=== PATIENT | female | born 1950 | race Caucasian/White ===

== ENCOUNTER 2020-08-02 21:46 | Outpatient (REF) | payer OTHER, SELFPAY ==
[2020-08-02 22:04] LABS: HCT 34.5 % (36.0-46.0); HGB 10.6 g/dL (11.2-15.7); MCHC 30.7 % (32.0-36.0); MCV 87.8 fL (80-95); MPV 10.5 fL (8.0-11.0); Platelet Count 447 10^3/uL (130-400); RBC 3.93 10^6/uL (3.93-5.22); RDW 14.6 % (11.7-14.6); RDW-SD 47.2 fL; WBC 7.19 10^3/uL (4.4-10.8)
[2020-08-02 22:53] LABS: TSH (W/Ref FT4) 0.92 uIU/mL (0.36-3.74)
[2020-08-02 22:57] LABS: Vitamin B12 > 2000 pg/mL (193-986)
== END 2020-08-02 21:47 | disposition home or self-care (01) ==
LOC: NCHCN 21:46
PROVIDERS: Visit Provider Nurse Practitioner Family
DX: K50.90 Crohn's disease, unspecified, without complications (principal); R00.2 Palpitations
CPT/HCPCS: 85027; 82607; 84443

== ENCOUNTER 2020-09-04 20:29 | Outpatient (REF) | payer OTHER, SELFPAY ==
[2020-09-04 21:44] LABS: HCT 32.1 % (36.0-46.0); HGB 10.2 g/dL (11.2-15.7); MCH 26.8 pg (27.0-33.0); MCHC 31.8 % (32.0-36.0); MCV 84.3 fL (80-95); MPV 10.1 fL (8.0-11.0); Platelet Count 581 10^3/uL (130-400); RBC 3.81 10^6/uL (3.93-5.22); RDW 16.6 % (11.7-14.6); WBC 11.43 10^3/uL (4.4-10.8)
[2020-09-04 21:54] LABS: Anion Gap 14.7 mmol/L (3-11); BUN 29 mg/dL (7-18); CO2 19.3 mmol/L (21.0-32.0); CREATININE 0.9 mg/dL (0.55-1.02); Calcium 8.7 mg/dL (8.5-10.1); Chloride 109 mmol/L (98-107); Glucose 121 mg/dL (74-106); Potassium 3.2 mmol/L (3.5-5.1); Sodium 143 mmol/L (136-145)
== END 2020-09-04 20:30 | disposition home or self-care (01) ==
LOC: NCHCN 20:29
PROVIDERS: Visit Provider Nurse Practitioner Family
DX: K50.00 Crohn's disease of small intestine without complications (principal); R19.7 Diarrhea, unspecified; K52.9 Noninfective gastroenteritis and colitis, unspecified
CPT/HCPCS: 80048; 85027

== ENCOUNTER 2020-09-20 12:12 | Outpatient (REF) | payer OTHER, SELFPAY ==
[2020-09-20 21:08] LABS: Hemoglobin A1C 5.7 % (<5.7)
[2020-09-20 21:14] LABS: Anion Gap 8.9 mmol/L (3-11); BUN 25 mg/dL (7-18); CO2 18.1 mmol/L (21.0-32.0); Calcium 8.7 mg/dL (8.5-10.1); Calculated LDL 64 mg/dL (<100); Chloride 113 mmol/L (98-107); Cholesterol 204 mg/dL (<200); Estimated GFR 54.97 (mL/min/1.73m2); Glucose 153 mg/dL (74-106); HDL Cholesterol 117 mg/dL (40-60); Sodium 140 mmol/L (136-145); Triglyceride 115 mg/dL (<150)
== END 2020-09-20 12:13 | disposition home or self-care (01) ==
LOC: NCHCN 12:12
PROVIDERS: Visit Provider Nurse Practitioner Family
DX: R73.9 Hyperglycemia, unspecified (principal); K50.00 Crohn's disease of small intestine without complications; Z13.220 Encounter for screening for lipoid disorders
CPT/HCPCS: 80048; 80061; 83036

== ENCOUNTER 2020-09-26 10:37 | Outpatient (REF) | payer OTHER, SELFPAY ==
[2020-09-26 14:01] LABS: Potassium 3.7 mmol/L (3.5-5.1)
== END 2020-09-26 10:38 | disposition home or self-care (01) ==
LOC: NCHCN 10:37
PROVIDERS: Visit Provider Nurse Practitioner Family
DX: K50.00 Crohn's disease of small intestine without complications (principal); E87.6 Hypokalemia
CPT/HCPCS: 84132

== ENCOUNTER 2020-10-20 18:44 | Outpatient (REF) | payer MEDICARE, OTHER, SELFPAY ==
[2020-10-18 21:48] LABS: BUN 16 mg/dL (7-18); Calcium 8.8 mg/dL (8.5-10.1); Chloride 109 mmol/L (98-107); Estimated GFR 54.97 (mL/min/1.73m2); Glucose 99 mg/dL (74-106); Potassium 3.6 mmol/L (3.5-5.1); Sodium 143 mmol/L (136-145)
== END 2020-10-20 18:45 | disposition home or self-care (01) ==
LOC: NCHCN 18:44
PROVIDERS: Visit Provider Nurse Practitioner Family
DX: E87.6 Hypokalemia (principal); R19.7 Diarrhea, unspecified
CPT/HCPCS: 80048

== ENCOUNTER 2021-02-20 19:00 | Outpatient (REF) | payer MEDICARE, SELFPAY ==
[2021-02-20 15:13] LABS: Abs Immature Grans 0.01 10^3/uL (0.0-0.06); Absolute Basophil Count 0.07 10^3/uL (0.0-0.2); Absolute Eosinophil Count 0.16 10^3/uL (0.0-0.7); Absolute Lymphocyte Count 1.72 10^3/uL (1.2-3.4); Absolute Monocyte Count 0.32 10^3/uL (0.1-0.8); Absolute Neutrophil Count 2.87 10^3/uL (1.2-6.7); Basophils % 1.4; Eosinophils % 3.1; HCT 30.3 % (36.0-46.0); HGB 8.9 g/dL (11.2-15.7); Immature Grans % 0.2; Lymphocytes % 33.4; MCH 22.6 pg (27.0-33.0); MCHC 29.4 % (32.0-36.0); MCV 76.9 fL (80-95); Monocytes % 6.2; Neutrophils % 55.7; Nucleated RBC 0 %; Platelet Count 510 10^3/uL (130-400); RBC 3.94 10^6/uL (3.93-5.22); RDW 17.7 % (11.7-14.6); RDW-SD 49.2 fL; WBC 5.15 10^3/uL (4.4-10.8)
[2021-02-20 15:25] LABS: ALT 20 U/L (14-59); AST 13 U/L (15-37); Albumin 3.4 g/dL (3.4-5.0); Alkaline Phosphatase 75 U/L (46-116); Bilirubin, Direct 0.1 mg/dL (0.0-0.2); Bilirubin, Total 0.2 mg/dL (0.2-1.0); Total Protein 6.3 g/dL (6.4-8.2)
== END 2021-02-20 19:01 | disposition home or self-care (01) ==
LOC: LBN 19:00
PROVIDERS: Visit Provider Internal Medicine Gastroenterology
DX: R19.7 Diarrhea, unspecified (principal); K50.012 Crohn's disease of small intestine with intestinal obstruction
CPT/HCPCS: 80076; 85025

== ENCOUNTER 2021-03-04 15:09 | Outpatient (REF) | payer MEDICARE, SELFPAY ==
[2021-03-04 21:22] LABS: HCT 29.7 % (36.0-46.0); HGB 8.6 g/dL (11.2-15.7); MCH 22.2 pg (27.0-33.0); MCV 76.5 fL (80-95); MPV 10.2 fL (8.0-11.0); Platelet Count 495 10^3/uL (130-400); RBC 3.88 10^6/uL (3.93-5.22); RDW 17.9 % (11.7-14.6); RDW-SD 49.4 fL; WBC 6.11 10^3/uL (4.4-10.8)
[2021-03-04 21:40] LABS: Anion Gap 10.6 mmol/L (3-11); BUN 14 mg/dL (7-18); CO2 23.4 mmol/L (21.0-32.0); CREATININE 0.8 mg/dL (0.55-1.02); Calcium 8.7 mg/dL (8.5-10.1); Chloride 107 mmol/L (98-107); Glucose 84 mg/dL (74-106); Potassium 4.2 mmol/L (3.5-5.1); Sodium 141 mmol/L (136-145)
[2021-03-05 09:44] LABS: Abs Immature Grans 0.01 10^3/uL (0.0-0.06); Absolute Basophil Count 0.04 10^3/uL (0.0-0.2); Absolute Eosinophil Count 0.17 10^3/uL (0.0-0.7); Absolute Lymphocyte Count 2.27 10^3/uL (1.2-3.4); Absolute Monocyte Count 0.38 10^3/uL (0.1-0.8); Absolute Neutrophil Count 3.36 10^3/uL (1.2-6.7); Basophils % 0.6; Eosinophils % 2.7; Immature Grans % 0.2; Lymphocytes % 36.4; Monocytes % 6.1
[2021-03-05 09:54] LABS: Iron 27 ug/dL (50-170); Total Iron Binding Capacity 446 ug/dL (250-450)
[2021-03-05 10:20] LABS: Ferritin 7 ng/mL (8-252); Vitamin B12 146 pg/mL (193-986)
== END 2021-03-04 15:10 | disposition home or self-care (01) ==
LOC: NCHCN 15:09
PROVIDERS: Visit Provider Nurse Practitioner Family
DX: D64.9 Anemia, unspecified (principal); R00.2 Palpitations
CPT/HCPCS: 80048; 85027; 82607; 82728; 83540; 83550; 84443; 85007

== ENCOUNTER 2021-08-26 15:24 | Outpatient (REF) | payer MEDICARE, SELFPAY ==
[2021-08-26 21:57] LABS: ESR 13 mm/hr (0-30)
[2021-08-26 21:59] LABS: C-Reactive Protein 0.08 mg/dL (0.0-0.3)
== END 2021-08-26 15:25 | disposition home or self-care (01) ==
LOC: LBN 15:24
PROVIDERS: Visit Provider Internal Medicine Rheumatology
DX: M79.641 Pain in right hand (principal); M79.642 Pain in left hand
CPT/HCPCS: 85652; 86140

== ENCOUNTER 2021-11-24 19:13 | Outpatient (REF) | payer MEDICARE, OTHER, SELFPAY ==
[2021-11-24 15:16] LABS: Abs Immature Grans 0.05 10^3/uL (0.0-0.06); Absolute Basophil Count 0.05 10^3/uL (0.0-0.2); Absolute Eosinophil Count 0.01 10^3/uL (0.0-0.7); Absolute Lymphocyte Count 1.86 10^3/uL (1.2-3.4); Absolute Monocyte Count 0.71 10^3/uL (0.1-0.8); Basophils % 0.4; Eosinophils % 0.1; HGB 11.5 g/dL (11.2-15.7); Immature Grans % 0.4; MCHC 32.9 % (32.0-36.0); MCV 88 fL (80-95); MPV 10.8 fL (8.0-11.0); Monocytes % 5.7; Neutrophils % 78.4; Platelet Count 306 10^3/uL (130-400); RBC 3.97 10^6/uL (3.93-5.22); RDW 13.9 % (11.7-14.6); WBC 12.38 10^3/uL (4.4-10.8)
[2021-11-24 15:34] LABS: Absolute Neutrophil Count 9.71 10^3/uL (1.2-6.7)
[2021-11-24 16:09] LABS: ALT 54 U/L (14-59); AST 28 U/L (15-37); Albumin 3.3 g/dL (3.4-5.0); Alkaline Phosphatase 109 U/L (46-116); Anion Gap 11.7 mmol/L (3-11); BUN 20 mg/dL (7-18); Bilirubin, Total 0.8 mg/dL (0.2-1.0); CO2 23.3 mmol/L (21.0-32.0); CREATININE 0.9 mg/dL (0.55-1.02); Calcium 9.6 mg/dL (8.5-10.1); Chloride 105 mmol/L (98-107); Estimated GFR 68.77 (mL/min/1.73m2); Glucose 100 mg/dL (74-106); Potassium 3.2 mmol/L (3.5-5.1); Sodium 140 mmol/L (136-145)
== END 2021-11-24 19:14 | disposition home or self-care (01) ==
LOC: NCHCN 19:13
PROVIDERS: Visit Provider Internal Medicine
DX: R10.31 Right lower quadrant pain (principal)
CPT/HCPCS: 80053; 87077; 85025; 87086; 87186

== ENCOUNTER 2022-01-07 15:32 | Outpatient (REF) | payer MEDICARE, OTHER, SELFPAY | END 2022-01-07 15:33 | disposition home or self-care (01) | LOC: NCHCN 15:32 | PROVIDERS: Visit Provider Internal Medicine | DX: R39.89 Other symptoms and signs involving the genitourinary system (principal) | CPT/HCPCS: 87077; 87086; 87186 ==

== ENCOUNTER 2022-04-27 14:43 | Outpatient (REF) | payer MEDICARE, OTHER, SELFPAY ==
[2022-04-27 15:55] LABS: HCT 36.3 % (36.0-46.0); HGB 11.7 g/dL (11.2-15.7); MCH 28.9 pg (27.0-33.0); MCHC 32.2 % (32.0-36.0); MCV 90 fL (80-95); Platelet Count 396 10^3/uL (130-400); RBC 4.05 10^6/uL (3.93-5.22); RDW 13.9 % (11.7-14.6); RDW-SD 45.1 fL; WBC 7.47 10^3/uL (4.4-10.8)
[2022-04-27 16:44] LABS: Anion Gap 9.9 mmol/L (3-11); BUN 18 mg/dL (7-18); CO2 24.1 mmol/L (21.0-32.0); CREATININE 0.8 mg/dL (0.55-1.02); Calcium 9.3 mg/dL (8.5-10.1); Chloride 107 mmol/L (98-107); Estimated GFR 79.22 (mL/min/1.73m2); Ferritin 14 ng/mL (8-252); Glucose 87 mg/dL (74-106); Potassium 4.1 mmol/L (3.5-5.1); Sodium 141 mmol/L (136-145); Vitamin B12 195 pg/mL (193-986)
[2022-04-27 16:56] LABS: Iron 130 ug/dL (50-170); Total Iron Binding Capacity 408 ug/dL (250-450); Transferrin Sat 32 % (15-50)
== END 2022-04-27 14:44 | disposition home or self-care (01) ==
LOC: NCHCN 14:43
PROVIDERS: Visit Provider Nurse Practitioner Family
DX: D64.9 Anemia, unspecified (principal); E53.8 Deficiency of other specified B group vitamins
CPT/HCPCS: 80048; 85027; 82607; 82728; 83540; 83550

== ENCOUNTER 2022-05-15 15:34 | Outpatient (REF) | payer MEDICARE, OTHER, SELFPAY | END 2022-05-15 15:35 | disposition home or self-care (01) | LOC: NCHCN 15:34 | PROVIDERS: Visit Provider Internal Medicine | DX: N39.0 Urinary tract infection, site not specified (principal) | CPT/HCPCS: 87077; 87086; 87186 ==

== ENCOUNTER 2022-11-16 12:58 | Outpatient (REF) | payer MEDICARE, SELFPAY ==
[2022-11-16 14:52] LABS: HCT 32.1 % (36.0-46.0); HGB 9.8 g/dL (11.2-15.7); MCH 25.5 pg (27.0-33.0); MCHC 30.5 % (32.0-36.0); MCV 83 fL (80-95); MPV 9.3 fL (8.0-11.0); Platelet Count 589 10^3/uL (130-400); RBC 3.85 10^6/uL (3.93-5.22); RDW 14.6 % (11.7-14.6); RDW-SD 44.4 fL; WBC 6.89 10^3/uL (4.4-10.8)
[2022-11-16 16:04] LABS: Ferritin 11 ng/mL (8-252); Vitamin B12 188 pg/mL (193-986)
== END 2022-11-16 12:59 | disposition home or self-care (01) ==
LOC: NCHCN 12:58
PROVIDERS: Visit Provider Internal Medicine
DX: D64.9 Anemia, unspecified (principal); E53.8 Deficiency of other specified B group vitamins
CPT/HCPCS: 85027; 82607; 82728

== ENCOUNTER 2023-01-20 09:26 | Outpatient (REF) | payer MEDICARE, SELFPAY ==
--- OUTSIDE RECORDS SUMMARY | 2023-01-20 09:32 | XMS_ITS | Patient Health Record ---
Author Name Unknown Organization Zoie Haskins MD [facility] Address [address] [place] [id number] Care Team Providers Care Franchise Business Consultant Name Role Phone Lois Farrar Primary Care Provider Josefina Limgianna Jarett Unavailable [phone] ALLERGIES Allergen (clinical drug ingredient) Drug/Non Drug Allergy documented on EMR Reaction Allergy Type Onset Date Status SENSITIVITY TO FENADRYL/ (uncoded) CAUSED HALLUCINATIONS/ NAUSEA DIZZINESS Allergy Active RESULTS Component Value Reference Range Notes Pacemaker Interrogation Reviewed date:08/26/2022 02:54:36 PM Interpretation: Performing Lab: Notes/Report: REASON FOR REFERRAL No Information MEDICATIONS Medication SIG (Take, Route, Fr equency, Duration) Notes Start Date End Date Status Iron Active Dofetilide 125 MCG TAKE 1 CAPSULE BY [facility] TWICE A DAY FOR 90 DAYS for 90 Active B12 Active Apixaban 5 MG 1 tablet Orally twic e a day for 90 days Active SOCIAL HISTORY Tobacco Use: Social History Observation Description Date Details (start date - stop date) Former Smoker NA - NA Sex Assigned At : Social History Observation Description Sex Assigned At Unknown Smoking Question Answer Notes Status: Former Smoker PROBLEMS Problem Type ICD Code Onset Dates Problem Status W/U Status Risk SNOMED Code Notes Problem Paroxysmal atrial fibrillation (I48.0) Active confirmed 568123267 Problem Iron deficiency anemia, unspecified iron deficiency anemia type (D50.9) Active confirmed 47840865 Problem Status post placement of implantable loop recorder (Z95.818) Active confirmed 422475286 Problem Persistent atrial fibrillation (I48.19) Active confirmed 747103545 VITAL SIGNS Heart Rate 81 /min 11/23/2022 Denies any evelio nce issues or falls, Denies any use of assistance devices Blood pressure diastolic 84 mm Hg 11/23/2022 Den ies any balance issues or falls, Denies any use of assistance devices Oximetry 97 % 11/23/2022 Denies any evelio nce issues or falls, Denies any use of assistance devices Height 62 in 11/23/2022 Denies any evelio nce issues or falls, Denies any use of assistance devices Blood pressure systolic 120 mm Hg 11/23/2022 Fabián es any balance issues or falls, Denies any use of assistance devices Weight 164 lbs 11/23/2022 Denies any evelio nce issues or falls, Denies any use of assistance devices BMI 29.99 kg/m2 11/23/2022 Denies any evelio nce issues or falls, Denies any use of assistance devices Encounters Encounter Location Date Provider Diagnosis ZOIE HASKINS MD [facility] [address] [place] [phone] 03/09/2022 Jarett Flowers Idiopathic 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 ; Paroxysmal atrial fibrillation I48.0 ; Iron deficiency anemia, unspecified iron deficiency anemia type D50.9 and Status post placement of implantable loop recorder Z95.818 ZOIE HASKINS MD [facility] [address] [place] [phone] 03/09/2022 Jarett Kristie Status post placemen t of implantable loop recorder Z95.818 ; Persistent atrial fibrillation I48.19 and Paroxysmal atrial fibrillation I48.0 ZOIE HASKINS MD [facility] [address] [place] [phone] 04/09/2022 Jarettana Flowers Status post placemen t of implantable loop recorder Z95.818 ; Persistent atrial fibrillation I48.19 and Paroxysmal atrial fibrillation I48.0 ZOIE HASKINS MD [facility] [address] [place] [phone] 06/11/2022 Jarettana Flowers Status post placemen t of implantable loop recorder Z95.818 ; Persistent atrial fibrillation I48.19 and Paroxysmal atrial fibrillation I48.0 ZOIE HASKINS MD [facility] [address] [place] [phone] 07/13/2022 Jarett Kristie Status post placemen t of implantable loop recorder Z95.818 ; Persistent atrial fibrillation I48.19 and Paroxysmal atrial fibrillation I48.0 ZOIE HASKINS MD [facility] [address] [place] [phone] 08/13/2022 Jarett Sad Status post placemen t of implantable loop recorder Z95.818 ; Persistent atrial fibrillation I48.19 and Paroxysmal atrial fibrillation I48.0 [facility] [address] [phone] 09/07/2022 Jarett Ahmet HASKINS MD [facility] [address] [place] [phone] 09/14/2022 Jarett Kristie Status post placemen t of implantable loop recorder Z95.818 ; Persistent atrial fibrillation I48.19 and Paroxysmal atrial fibrillation I48.0 [facility] [address] [place] [phone] 10/05/2022 Jarett HASKINS MD [facility] [address] [place] [phone] 10/15/2022 Jarett Kristie Status post placemen t of implantable loop recorder Z95.818 ; Persistent atrial fibrillation I48.19 and Paroxysmal atrial fibrillation I48.0 ZOIE HASKINS MD [facility] [address] [place] [phone] 11/16/2022 Jarett Kristie Status post placemen t of implantable loop recorder Z95.818 ; Persistent atrial fibrillation I48.19 and Paroxysmal atrial fibrillation I48.0 ZOIE HASKINS MD [facility] [address] [phone] 11/23/2022 Jarettana Leo Idiopathic 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 ; Paroxysmal atrial fibrillation I48.0 ; Iron deficiency anemia, unspecified iron deficiency anemia type D50.9 ; Status post placement of implantable loop recorder Z95.818 and Shortness of breath on exertion R06.02 ZOIE HASKINS MD [facility] [address], [place] [address] 12/17/2022 [facility] Status post placemen t of implantable loop recorder Z95.818 ; Persistent atrial fibrillation I48.19 and Paroxysmal atrial fibrillation I48.0 ZOIE HASKINS MD [facility] [address] [place] [phone] 01/18/2023 [facility] ASSESSMENTS Encounter Date Diagnosis Assessment Notes Treatment Notes Treatment Clinical Notes 03/09/2022 Idiopathic hypotension (ICD-10 - I95.0) Improved on midodrin e which she is no longer taking 03/09/2022 Status post placement of implantable loop recorder (ICD-10 - Z95.818) orders on file as of 07/21/21 04/09/2022 Status post placement of implantable loop recorder (ICD-10 - Z95.818) orders on file as of 07/21/21 06/11/2022 Status post placement of implantable loop recorder (ICD-10 - Z95.818) orders on file as of 06/11/22 07/13/2022 Status post placement of implantable loop recorder (ICD-10 - Z95.818) orders on file as of 06/11/22 08/13/2022 Status post placement of implantable loop recorder (ICD-10 - Z95.818) orders on file as of 06/11/22 09/14/2022 Status post placement of implantable loop recorder (ICD-10 - Z95.818) orders on file as of 06/11/22 10/15/2022 Status post placement of implantable loop recorder (ICD-10 - Z95.818) orders on file as of 06/11/22 11/16/2022 Status post placement of implantable loop recorder (ICD-10 - Z95.818) orders on file as of 06/11/22 11/23/2022 Idiopathic hypotension (ICD-10 - I95.0) Improved on midodrin e which she is no longer taking 12/17/2022 Status post placement of implantable loop recorder (ICD-10 - Z95.818) orders on file as of 06/11/22 12/17/2022 Persistent atrial fibrillation (ICD-10 - I48.19) 11/23/2022 Iron deficiency anemia, unspecified iron deficiency anemia type (ICD-10 - D50.9) Hg 10 in 05/202107/17/2021- 11.1 per PCP recent labwork completed 11/16/2022 Persistent atrial fibrillation (ICD-10 - I48.19) 11/23/2022 Paroxysmal atrial fibrillation (ICD-10 - I48.0) - [id number] at least 2 - Now failed DCCV x3 (05/26/2021, 05/30/2021, 06/19/2021) --s/p DCCV and ILR insertion by Dr. Leo 06/19/2021 @ -07/17/2021- PVI and posterior wall RFA - Ponce - - ILR shows no further episodes of Afib - Will need to consider Convergent MAZE if afib returns -Previously on Amiodarone, Digoxin and Diltiazem - Plan to continue Tikosyn and Eliquis for now and continue to montior ILR patient -ECHO for evaluation --Goals: To recognize symptoms of atrial fib/flutter. Implement treatment plan to treat afib/flutter and evaluate response to plan. Taking medications as prescribed/report side effects evaluated [id number] and HASBLED scores to decide anticoagulation plan report signs/symptoms of afib/flutter w/wo RVR to office that need PRN medications or office visit. Compliance office visits/testing. Prevent hospitalzations. 10/15/2022 Persistent atrial fibrillation (ICD-10 - I48.19) 09/14/2022 Persistent atrial fibrillation (ICD-10 - I48.19) 08/13/2022 Persistent atrial fibrillation (ICD-10 - I48.19) 07/13/2022 Persistent atrial fibrillation (ICD-10 - I48.19) 06/11/2022 Persistent atrial fibrillation (ICD-10 - I48.19) 04/09/2022 Persistent atrial fibrillation (ICD-10 - I48.19) 03/09/2022 Persistent atrial fibrillation (ICD-10 - I48.19) 03/09/2022 Paroxysmal atrial fibrillation (ICD-10 - I48.0) - [id number] at least 2 - Now failed DCCV x3 (05/26/2021, 05/30/2021, 06/19/2021) --s/p DCCV and ILR insertion by Dr. Leo 06/19/2021 @ -07/17/2021- PVI and posterior wall RFA - Ponce - - ILR shows no further episodes of Afib - Will need to consider Convergent MAZE if afib returns -Previously on Amiodarone, Digoxin and Diltiazem - Plan to continue Tikosyn and Eliquis for now and continue to montior ILR patient --Goals: To recognize symptoms of atrial fib/flutter. Implement treatment plan to treat afib/flutter and evaluate response to plan. Taking medications as prescribed/report side effects evaluated [id number] and HASBLED scores to decide anticoagulation plan report signs/symptoms of afib/flutter w/wo RVR to office that need PRN medications or office visit. Compliance office visits/testing. Prevent hospitalzations. 03/09/2022 Iron deficiency anemia, unspecified iron deficiency anemia type (ICD-10 - D50.9) Hg 10 in 05/202107/17/2021- 11.1 03/09/2022 Status post placement of implantable loop recorder (ICD-10 - Z95.818) -s/p DCCV and ILR insertion by Dr. Leo 06/19/2021 @ - Remote monitoring per office protocol 03/09/2022 Paroxysmal atrial fibrillation (ICD-10 - I48.0) 04/09/2022 Paroxysmal atrial fibrillation (ICD-10 - I48.0) 06/11/2022 Paroxysmal atrial fibrillation (ICD-10 - I48.0) 07/13/2022 Paroxysmal atrial fibrillation (ICD-10 - I48.0) 08/13/2022 Paroxysmal atrial fibrillation (ICD-10 - I48.0) 09/14/2022 Paroxysmal atrial fibrillation (ICD-10 - I48.0) 10/15/2022 Paroxysmal atrial fibrillation (ICD-10 - I48.0) 11/16/2022 Paroxysmal atrial fibrillation (ICD-10 - I48.0) 11/23/2022 Status post placement of implantable loop recorder (ICD-10 - Z95.818) -s/p DCCV and ILR insertion by Dr. Leo 06/19/2021 @ - Remote monitoring per office protocol 12/17/2022 Paroxysmal atrial fibrillation (ICD-10 - I48.0) 11/23/2022 Shortness of breath on exertion (ICD-10 - R06.02) shortness of breath on exerton lexiscan NM MPI for evaluation EKG reviewed return after testing 03/09/2022 Other This patient w as seen in conjunction with Monique Singer PA-C 11/23/2022 Other PLAN OF TREATMENT Pending Test Test Name Order Date Lexiscan Stress Nuclear MPI 1-day protoc ol 11/23/2022 Ultrasound: Echocardiogram 11/23/2022 Electrocardiogram (EKG) 11/23/2022 Electrocardiogram (EKG) 06/26/2021 Electrocardiogram (EKG) 06/04/2021 Electrocardiogram (EKG) 06/18/2021 Electrocardiogram (EKG) 07/24/2021 Electrocardiogram (EKG) 03/09/2022 Synchronized Cardioversion 06/18/2021 Pacemaker Interrogation 07/13/2022 Loop recorder implantation 06/18/2021 EPS with transseptal catheterization, Cr yoballoon AF ablation, CARTO, ICE 06/26/2021 Next Appt Details Provider Name:Jarett Leo, 02/11/2023 08:40:00 AM, [address], [address], [place], [address], Provider Name:Inna Hinton, 02/11/2023 09:00:00 AM, [address], [place], [address], Provider Name:Jarett Leo, 02/17/2023 02:15:00 PM, [address], [address], [place], [address], Insurance Providers Payer Name Payer Address Payer Phone Subscriber Number Group Number Insured Name Patient Relationship to Insured Coverage Start Date Coverage End Date Medicare [address] [place] [phone] [id number] Krystyna Buck i Self - patient is the insured [facility] Claims Division [address] [place] [address] [id number] Krystyna Buck i Self - patient is the insured 2 MEDICAL (GENERAL) HISTORY Medical History History ICD Code Crohns disease, small intestine Atrial Fibrillation Surgical History Surgery Date(Month/Year) C SECTION 1985 CSECTION 1983 CROHNS 2004 CROHNS/2001.
--- OUTSIDE RECORDS SUMMARY | 2023-01-20 09:32 | XMS_ITS | CCD ---
Author Name Unknown Address [address] [place] [address] [phone] Organization Unknown Address [address] [place] [address] [id number] Care Team Providers Care Field Assistant Name Role Phone JOEY WREN Sanjuana Attending Physician [phone] Vital Signs Unknown or Not Available. Allergies Allergy Code Allergy Type Reaction Status FENTANYL 4337 Drug allergy Active Procedures Unknown or Not Available. History of Immunizations Unknown or Not Available. Problems Unknown or Not Available. Results Unknown or Not Available. Active Medications Unknown or Not Available. Medications Administered During Visit Medication Dose Units Frequency Route Date/Time of Last Dose FAMOTIDINE TABLET: 20MG 20 MG QWEEK PO 01/19/2023 09:09 MethylPREDNISolone SUC INJ SDV:40MG/1ML 40 MG QWEEK IVP 01/19/2023 09:0 9 IRON SUCROSE IVPB: 200MG/100ML 200 MG QWEEK IVPB 01/19/2023 09:21 Encounters Encounter Diagnosis Diagnosis Code Start Date Iron deficiency anemia, unspecified D509 12/24/2022 Social History Smoking Status Code Start Date End Date Former smoker [id number] Patient Decision Aids Unknown or Not Available. Discharge Instructions You were admitted to [facility] on 12/24/2022 08:56 with a principal diagnosis of Iron deficiency anemia, unspecified You were discharged from [facility] Should you have any questions prior to discharge, please contact a member of your healthcare team. If you have left the hospital and have any questions, please contact your primary care physician. Chief Complaint and Reason For Visit Unknown or Not Available. Function Status Unknown or Not Available. Plan of Care Unknown or Not Available. Referral/Transition of Care Unknown or Not Available.
[2023-01-20 16:16] LABS: HCT 35.2 % (36.0-46.0); HGB 11.1 g/dL (11.2-15.7); MCH 27.1 pg (27.0-33.0); MCHC 31.5 % (32.0-36.0); MCV 86 fL (80-95); MPV 10.3 fL (8.0-11.0); Platelet Count 445 10^3/uL (130-400); RBC 4.09 10^6/uL (3.93-5.22); RDW 18.9 % (11.7-14.6); RDW-SD 59.2 fL; WBC 9.46 10^3/uL (4.4-10.8)
[2023-01-20 17:05] LABS: Ferritin 266 ng/mL (8-252); Vitamin B12 279 pg/mL (193-986)
== END 2023-01-20 09:27 | disposition home or self-care (01) ==
LOC: NCHCN 09:26
PROVIDERS: Visit Provider Internal Medicine
DX: D64.9 Anemia, unspecified (principal); E53.9 Vitamin B deficiency, unspecified
CPT/HCPCS: 85027; 82607; 82728

== ENCOUNTER 2023-04-20 09:25 | Outpatient (REF) | payer MEDICARE, SELFPAY ==
[2023-04-20 14:27] LABS: HCT 38.5 % (36.0-46.0); HGB 12.3 g/dL (11.2-15.7); MCH 28.6 pg (27.0-33.0); MCHC 31.9 % (32.0-36.0); MCV 90 fL (80-95); MPV 9.4 fL (8.0-11.0); Platelet Count 445 10^3/uL (130-400); RDW 13.5 % (11.7-14.6); RDW-SD 44.6 fL; WBC 6.45 10^3/uL (4.4-10.8)
[2023-04-20 15:23] LABS: Anion Gap 9.8 mmol/L (3-11); BUN 20 mg/dL (7-18); CO2 23.2 mmol/L (21.0-32.0); CREATININE 0.8 mg/dL (0.55-1.02); Calcium 9.8 mg/dL (8.5-10.1); Chloride 109 mmol/L (98-107); Estimated GFR 78.72 (mL/min/1.73m2); Glucose 92 mg/dL (74-106); Sodium 142 mmol/L (136-145); Vitamin B12 257 pg/mL (193-986)
== END 2023-04-20 09:26 | disposition home or self-care (01) ==
LOC: NCHCN 09:25
PROVIDERS: Referring Provider Internal Medicine; Visit Provider Internal Medicine
DX: D50.9 Iron deficiency anemia, unspecified (principal); E53.8 Deficiency of other specified B group vitamins; I48.0 Paroxysmal atrial fibrillation
CPT/HCPCS: 80048; 85027; 82607

== ENCOUNTER 2023-04-27 15:20 | Outpatient (REF) | payer MEDICARE, SELFPAY | END 2023-04-27 15:21 | disposition home or self-care (01) | LOC: NCHCN 15:20 | PROVIDERS: PCP Family Medicine; Visit Provider Family Medicine | DX: R31.9 Hematuria, unspecified (principal) | CPT/HCPCS: 87077; 87086; 87186 ==

== ENCOUNTER 2023-07-21 15:41 | Outpatient (REF) | payer MEDICARE, SELFPAY ==
[2023-07-21 21:48] LABS: HCT 40.2 % (36.0-46.0); HGB 12.7 g/dL (11.2-15.7); MCH 28.9 pg (27.0-33.0); MCHC 31.6 % (32.0-36.0); MCV 91 fL (80-95); MPV 9.9 fL (8.0-11.0); Platelet Count 384 10^3/uL (130-400); RDW 13.1 % (11.7-14.6); RDW-SD 44.1 fL
[2023-07-21 22:11] LABS: Hemoglobin A1C 5.5 % (<5.7)
[2023-07-21 22:26] LABS: Calculated LDL 86 mg/dL (<100); Cholesterol 214 mg/dL (<200); Ferritin 27 ng/mL (8-252); HDL Cholesterol 101 mg/dL (40-60); Triglyceride 135 mg/dL (<150); Vitamin B12 261 pg/mL (193-986)
== END 2023-07-21 15:42 | disposition home or self-care (01) ==
LOC: NCHCN 15:41
PROVIDERS: PCP Family Medicine; Visit Provider Internal Medicine
DX: R73.03 Prediabetes (principal); D50.9 Iron deficiency anemia, unspecified
CPT/HCPCS: 80061; 85027; 82607; 82728; 83036

== ENCOUNTER 2023-07-28 12:18 | Outpatient (REF) | payer MEDICARE, SELFPAY ==
[2023-07-28 14:09] LABS: Bilirubin Negative (Negative); Blood Moderate (Negative); Clarity Clear (Clear); Glucose Negative (Negative); Ketones Negative (Negative); Leukocyte Esterase Large (Negative); Nitrite Negative (Negative); Specific Gravity 1.015 (1.005-1.025); Urobilinogen 0.2 mg/dL (Up to 0.2); pH 6.5 (5-8)
[2023-07-28 14:14] LABS: ALT 28 U/L (14-59); AST 23 U/L (15-37); Albumin 3.6 g/dL (3.4-5.0); Alkaline Phosphatase 85 U/L (46-116); Anion Gap 9.9 mmol/L (3-11); BUN 22 mg/dL (7-18); Bilirubin, Total 0.42 mg/dL (0.2-1.0); CO2 24.1 mmol/L (21.0-32.0); CREATININE 0.8 mg/dL (0.55-1.02); Calcium 9.3 mg/dL (8.5-10.1); Chloride 107 mmol/L (98-107); Estimated GFR 78.24 (mL/min/1.73m2); Glucose 87 mg/dL (74-106); Potassium 4.2 mmol/L (3.5-5.1); Sodium 141 mmol/L (136-145); Total Protein 6.9 g/dL (6.4-8.2)
[2023-07-28 14:25] LABS: Epithelial Cells Few HPF (Negative); Other Cells Few Renal (Negative); WBC 20-50 HPF (0-5)
[2023-07-28 14:26] LABS: Bacteria Many HPF (Negative); Crystals Negative HPF (Negative); Mucus Negative (Negative)
[2023-07-28 14:27] LABS: C & S Indicated? Yes
== END 2023-07-28 12:19 | disposition home or self-care (01) ==
LOC: NCHCN 12:18
PROVIDERS: PCP Family Medicine; Visit Provider Internal Medicine
DX: I48.0 Paroxysmal atrial fibrillation (principal); R31.9 Hematuria, unspecified
CPT/HCPCS: 80053; 87077; 81003; 81015; 87086; 87186

== ENCOUNTER 2023-08-04 08:00 | Outpatient (REF) | payer MEDICARE, SELFPAY | END 2023-08-04 08:01 | disposition home or self-care (01) | LOC: NCHCN 08:00 | PROVIDERS: PCP Family Medicine; Visit Provider Internal Medicine | DX: Z87.440 Personal history of urinary (tract) infections (principal); R82.998 Other abnormal findings in urine; B96.29 Other Escherichia coli [E. coli] as the cause of diseases classified elsewhere | CPT/HCPCS: 87077; 87086; 87186 ==

== ENCOUNTER 2023-11-22 16:49 | Outpatient (REF) | payer MEDICARE, SELFPAY ==
[2023-11-22 16:18] LABS: Hemoglobin A1C 5.5 % (<5.7)
[2023-11-22 16:44] LABS: Ferritin 28 ng/mL (8-252); Vitamin B12 297 pg/mL (193-986)
[2023-11-22 18:53] LABS: HCT 37.4 % (36.0-46.0); MCH 29.1 pg (27.0-33.0); MCHC 32.1 % (32.0-36.0); MCV 91 fL (80-95); MPV 10.3 fL (8.0-11.0); Platelet Count 342 10^3/uL (130-400); RBC 4.12 10^6/uL (3.93-5.22); RDW 13.7 % (11.7-14.6); RDW-SD 45.2 fL
== END 2023-11-22 16:50 | disposition home or self-care (01) ==
LOC: NCHCN 16:49
PROVIDERS: PCP Family Medicine; Visit Provider Internal Medicine
DX: R73.03 Prediabetes (principal); D50.9 Iron deficiency anemia, unspecified
CPT/HCPCS: 85027; 82607; 82728; 83036

== ENCOUNTER 2024-03-01 13:38 | Outpatient (REF) | payer MEDICARE, SELFPAY ==
[2024-03-01 15:45] LABS: Abs Immature Grans 0.02 10^3/uL (0.0-0.06); Absolute Basophil Count 0.06 10^3/uL (0.0-0.2); Absolute Eosinophil Count 0.12 10^3/uL (0.0-0.7); Absolute Monocyte Count 0.32 10^3/uL (0.1-0.8); Absolute Neutrophil Count 4.19 10^3/uL (1.2-6.7); Basophils % 0.9 %; Eosinophils % 1.8 %; HCT 38.9 % (36.0-46.0); HGB 12.8 g/dL (11.2-15.7); Immature Grans % 0.3 %; Lymphocytes % 30.8 %; MCH 28.9 pg (27.0-33.0); MCHC 32.9 % (32.0-36.0); MCV 88 fL (80-95); Monocytes % 4.7 %; Neutrophils % 61.5 %; Platelet Count 342 10^3/uL (130-400); RBC 4.43 10^6/uL (3.93-5.22); RDW 14.3 % (11.7-14.6); RDW-SD 46.1 fL; WBC 6.81 10^3/uL (4.4-10.8)
[2024-03-01 16:07] LABS: BUN 16 mg/dL (7-18); CREATININE 0.8 mg/dL (0.55-1.02); Calcium 9.2 mg/dL (8.5-10.1); Chloride 108 mmol/L (98-107); Estimated GFR 78.24 (mL/min/1.73m2); Ferritin 23 ng/mL (8-252); Glucose 96 mg/dL (74-106); Magnesium 1.8 mg/dL (1.8-2.4); Potassium 3.9 mmol/L (3.5-5.1); Sodium 145 mmol/L (136-145)
== END 2024-03-01 13:39 | disposition home or self-care (01) ==
LOC: NCHCN 13:38
PROVIDERS: PCP Family Medicine; Visit Provider Internal Medicine
DX: D50.9 Iron deficiency anemia, unspecified (principal); E53.8 Deficiency of other specified B group vitamins; I48.0 Paroxysmal atrial fibrillation
CPT/HCPCS: 80048; 82728; 83735; 85025

== ENCOUNTER 2024-12-04 12:11 | Outpatient (REF) | payer MEDICARE, SELFPAY ==
[2024-12-04 15:14] LABS: HCT 38.4 % (36.0-46.0); HGB 12.1 g/dL (11.2-15.7); MCH 28.7 pg (27.0-33.0); MCHC 31.5 % (32.0-36.0); MCV 91 fL (80-95); MPV 10.7 fL (8.0-11.0); Platelet Count 332 10^3/uL (130-400); RBC 4.22 10^6/uL (3.93-5.22); RDW 12.9 % (11.7-14.6); RDW-SD 42.2 fL; WBC 5.97 10^3/uL (4.4-10.8)
[2024-12-04 15:58] LABS: ALT 28 U/L (14-59); AST 24 U/L (15-37); Albumin 3.5 g/dL (3.4-5.0); Alkaline Phosphatase 99 U/L (46-116); Anion Gap 9.9 mmol/L (3-11); BUN 12 mg/dL (7-18); Bilirubin, Total 0.4 mg/dL (0.2-1.0); CO2 26.1 mmol/L (21.0-32.0); Calcium 8.9 mg/dL (8.5-10.1); Calculated LDL 60 mg/dL (<100); Chloride 107 mmol/L (98-107); Cholesterol 165 mg/dL (<200); Estimated GFR 91.26 (mL/min/1.73m2); Ferritin 15 ng/mL (8-252); Glucose 101 mg/dL (74-106); HDL Cholesterol 83 mg/dL (>or=50); Potassium 3.7 mmol/L (3.5-5.1); Sodium 143 mmol/L (136-145); Total Protein 6.9 g/dL (6.4-8.2); Triglyceride 110 mg/dL (<150); Vitamin B12 167 pg/mL (193-986)
== END 2024-12-04 12:12 | disposition home or self-care (01) ==
LOC: NCHCN 12:11
PROVIDERS: PCP Family Medicine; Visit Provider Internal Medicine
DX: I25.84 Coronary atherosclerosis due to calcified coronary lesion (principal); D50.9 Iron deficiency anemia, unspecified; E53.8 Deficiency of other specified B group vitamins
CPT/HCPCS: 80053; 80061; 85027; 82607; 82728